=== PATIENT | male | born 1975 | race Caucasian/White ===

== ENCOUNTER 2023-02-05 07:00 | Outpatient (NON) | payer OTHER, SELFPAY | END 2023-02-05 07:01 | disposition home or self-care (01) | LOC: ANHLAB 02-06 10:20 | PROVIDERS: PCP Internal Medicine; Visit Provider Internal Medicine Gastroenterology | DX: D12.3 Benign neoplasm of transverse colon (principal) | CPT/HCPCS: 88305 ==

== ENCOUNTER 2023-02-05 09:48 | Day surgery (SDC) | payer OTHER, SELFPAY ==
[2023-01-19 09:00] VITALS: BMI 36.6
[2023-02-02 07:35] VITALS: BMI 34.5
--- NOTE | 2023-02-04 13:14 | PM.HPGS ---
History of Present Illness History of Present Illness Consent: Risks, benefits, and alternatives have been discussed and questions answered. Patient agrees to proceed with procedure. Chief complaint: Neoplasm Screening Narrative: Alphonso Lehman is a 47 year old male Referred for colon cancer screening. Review of Systems Review of Systems: All systems reviewed & are unremarkable except as noted in HPI and below PMFSH Past Medical History Medical History Anxiety Obesity Social History Social History Smoking status: Former smoker Alcohol intake: current Substance use: never Substance use type: does not use Living arrangements: with family Spiritual care concerns: No Meds Home Medications and Allergies Home Medications Medication Instructions Recorded Confirmed Type albuterol sulfate 90 mcg/actuation 2 puff inhalation PRN PRN Allergic 02/02/23 02/05/23 History aerosol inhaler Symptoms allopurinol 300 mg tablet 300 mg PO DAILY 02/02/23 02/05/23 History fluoxetine 10 mg capsule 10 mg PO DAILY 02/02/23 02/05/23 History hydroxyzine pamoate 50 mg capsule 50 mg PO PRN PRN Insomnia 02/02/23 02/05/23 History Allergies Allergy/AdvReac Type Severity Reaction Status Date / Time No Known Allergies Allergy Verified 02/05/23 10:58 Exam Const: General: alert Orientation/consciousness: patient oriented x3 Resp: Auscultation: clear to auscultation bilaterally Cardio: Rhythm: regular rhythm GI: GI Palp: Yes Soft to palpation and No Tenderness to palpation present (GI) Neuro: General: patient oriented x3 Assessment and Plan Assessment and plan (1) Colon cancer screening: Code(s): Z12.11 - Encounter for screening for malignant neoplasm of colon Status: Acute Assessment and Plan: Colonoscopy with possible biopsy or polypectomy or cautery or injection of substances.
--- NOTE | 2023-02-05 10:28 | P.PNAN_ITS ---
Anes - Initial Pre Proc Eval Procedure: Operation Date: 02/05/23 12:00 Proposed Procedures p Screening Colonoscopy - Chencho Colin MD Date/Time: 02/05/23 10:28 Surgeon: Chencho Colin MD Pre Op Diagnosis: Neoplasm Screening Patient Data Age: 47 Gender: M Height: 1.7 m Weight: 100 kg Allergies Allergy/AdvReac Type Severity Reaction Status Date / Time No Known Allergies Allergy Verified 02/02/23 07:26 Home Medications Medication Instructions Recorded Confirmed Type albuterol sulfate 90 mcg/actuation 2 puff inhalation PRN PRN Allergic 02/02/23 02/02/23 History aerosol inhaler Symptoms allopurinol 300 mg tablet 300 mg PO DAILY 02/02/23 02/02/23 History fluoxetine 10 mg capsule 10 mg PO DAILY 02/02/23 02/02/23 History hydroxyzine pamoate 50 mg capsule 50 mg PO PRN PRN Insomnia 02/02/23 02/02/23 History Patient hx anesthesia problems: none Family hx anesthesia problems: none Results Review: All pre-operative results and documents have been reviewed as part of the pre- operative evaluation. [facility] Past Medical History Medical History (Updated 02/05/23 @ 10:28 by Leonardo Cesar MD) Anxiety Obesity Social History Social History Smoking status: Former smoker Alcohol intake: current Substance use: never Substance use type: does not use Living arrangements: with family Spiritual care concerns: No Anes - Eval Final PreProcedure Day of Procedure 02/05/23 10:28 Patient weight: obese Heart: regular rate and rhythm Lungs: clear to auscultation and normal air movement Airway: Mallampati scale class II Neurological: alert and oriented Last oral intake: >/= 8 hours ASA classification: II Emergent: no Anesthetic plan: proceed Anesthesia type and monitoring: general GIVS Results Review: All pre-operative results and documents have been reviewed as part of the pre- operative evaluation. Informed Consent: The patient's anesthetic plan and its attendant risks and benefits were discussed with the patient/family/POA. Questions were solicited and answers provided to the satisfaction of the patient/family/POA.
[2023-02-05] MEDS: LACTATED RINGERS 1,000 ML 150 ML IV CONT (12:06)
[2023-02-05 12:15] VITALS: BP 107/83; PULSE 91; RESP 14; O2SAT 95
[2023-02-05 12:25] VITALS: BP 122/79; PULSE 80; RESP 14; O2SAT 100
[2023-02-05 12:35] VITALS: BP 122/95; PULSE 75; RESP 15; O2SAT 100
--- NOTE | 2023-02-17 08:32 | WPDANESPN ---
Anes - Prog Note Post-Op Date/Time: 02/17/23 08:32 Cardiovascular status: normal Respiratory status: normal Airway patency: baseline Mental status: baseline Post-Op hydration status: normal Vital Signs: Last Vital Signs Pulse 75 02/05/23 12:35 Resp 15 02/05/23 12:35 BP 122/95 H 02/05/23 12:35 Pulse Ox 100 02/05/23 12:35 O2 Del Method Room Air 02/05/23 12:35 Pain Score (VAS): 0 Post-procedural complaints: none Patient Feedback: Patient satisfied with anesthetic care.
== END 2023-02-05 12:48 | disposition home or self-care (01) ==
PROVIDERS: PCP Internal Medicine; Visit Provider Internal Medicine Gastroenterology
PROC: 0DJD8ZZ Inspection of Lower Intestinal Tract, Via Natural or Artificial Opening Endoscopic (ICD-10-PCS; CPT 45378; principal; 2023-02-05 12:00)
DX: Z12.11 Encounter for screening for malignant neoplasm of colon (principal)
CPT/HCPCS: 45380

== ENCOUNTER 2023-06-15 13:14 | Emergency (ER) | payer OTHER, SELFPAY ==
[2023-06-15 13:20] VITALS: BP 133/71; PULSE 68; RESP 20; TEMP 36.7; O2SAT 98
--- NOTE | 2023-06-15 13:49 | ED.SKABFB ---
HPI - Skin/Abscess/Foreign Bdy General Chief complaint: Skin/Abscess/Foreign Body Stated complaint: poison debbie or sumac Source: patient and RN notes reviewed History of Present Illness HPI narrative: 47 yo M presents to urgent care with complaints of what he believes is poison sumac or something of the like. Pt states he first noticed the red, itchy, rash to his bilateral AC areas. The rash has now spread to his entire arms, neck, upper chest, back, face, and scalp. Pt has been applying a topical Benadryl without relief. Pt does admit to brush hogging recently when this popped up. Denies any fevers, chills, vomiting, chest pain, or SOB. Related Data Allergies Allergy/AdvReac Type Severity Reaction Status Date / Time No Known Allergies Allergy Verified 02/05/23 10:58 Review of Systems Review of Systems: CONSTITUTIONAL: Denies fever, chills, or sweats. EYES: Denies visual changes, redness, or discharge. ENT: Denies otalgia and sore throat CARDIOVASCULAR: Denies chest pain, palpitations, or edema. RESPIRATORY: Denies cough or dyspnea. GASTROINTESTINAL: Denies abdominal pain, nausea, vomiting, or diarrhea. GENITOURINARY: Denies dysuria or hematuria. SKIN: Itchy rash MUSCULOSKELETAL: Denies back pain, joint pain, or myalgia. NEUROLOGIC: Denies headache, numbness, or weakness. Pertinent positives per HPI. [facility] Past Medical History Medical History Anxiety Obesity Social History Social History Smoking status: Former smoker Alcohol intake: current Substance use: never Substance use type: does not use Living arrangements: with family Spiritual care concerns: No Comments At the time of my signature, I reviewed and agree with the nursing past medical, surgical, social, and family history. There is no relevant family history pertinent to the patient complaint. Exam Narrative: GENERAL: This is a well-nourished, well-developed patient, in no apparent distress. HEAD: normocephalic, atraumatic. EYES: Sclera clear/white. Vision is grossly intact. EARS: External ears normal, auditory canals clear and without drainage. Hearing grossly intact. NOSE: External nose normal with no obvious nasal discharge, nares without redness, no rhinorrhea. THROAT: Mucous membranes moist, posterior pharynx clear. NECK: Neck supple, non-tender without lymphadenopathy, masses or thyromegaly. CARDIOVASCULAR: Regular rate RESPIRATORY: No respiratory stress SKIN: Erythemic rash scattered to bilateral arms, upper chest, posterior neck, bilateral cheeks, and scalp. NEURO: awake, alert, and oriented to person, place and time. There were no obvious focal neurologic abnormalities. EXTREMITIES: No clubbing, cyanosis, or edema. No joint tenderness, effusion, or edema noted. BACK: Nontender without deformity or crepitus. No flank tenderness. Course Course Level of Care: Express Care Visit Vital Signs Vital signs: Vital Signs Temperature 98.0 F 06/15/23 13:20 Pulse Rate 68 06/15/23 13:20 Respiratory Rate 06/15/23 13:20 Blood Pressure 133/71 06/15/23 13:20 Pulse Oximetry 98 06/15/23 13:20 Oxygen Delivery Room Air 06/15/23 13:20 Temperature 98.0 F 06/15/23 13:20 Pulse Rate 68 06/15/23 13:20 Respiratory Rate 06/15/23 13:20 Blood Pressure 133/71 06/15/23 13:20 Pulse Oximetry 98 06/15/23 13:20 Oxygen Delivery Room Air 06/15/23 13:20 Reviewed MDM - Skin/Abscess/Foreign Bdy MDM Narrative Medical decision making narrative: Prevention is always better than treatment. Learn to identify poison debbie, oak, and sumac and avoid it. Wear long sleeves, long pants, shoes, and socks. If you touched the plant, try to keep your hands away from your eyes, mouth, and face. Wash the skin thoroughly with soap and cool water as soon as possible. Scrub under the fingernails with a brush to preven
[2023-06-15] MEDS: methylPREDNISolone SOD SUCC 125 MG VIAL IM (13:55)
== END 2023-06-15 14:07 | disposition home or self-care (01) ==
PROVIDERS: Emergency Provider Nurse Practitioner Family; PCP Internal Medicine
DX: L25.9 Unspecified contact dermatitis, unspecified cause (principal); Z87.891 Personal history of nicotine dependence; E66.9 Obesity, unspecified; Z68.41 Body mass index [BMI] 40.0-44.9, adult
CPT/HCPCS: 96372; 99213; G0463; J2930